=== PATIENT | female | born 1985 | race African-American/Black ===

== ENCOUNTER 2017-12-23 18:22 | Emergency (ER) | payer SELFPAY ==
[~2017-12-23] VITALS: Ht 149.9 cm; Wt 80.0 kg
[~2017-12-23 18:22] MED LIST: CEPHALEXIN500 MG PO; MOTRIN200 MG PO; NO HOME MEDS; PNV PRENATAL PL1 TAB PO; PRENATAL1 TAB OR; TYLENOL325 MG PO; ZOFRAN ODT4 MG OR
[2017-12-23 20:32] LABS: URINE BILIRUBIN - DIPSTICK NEGATIVE (NEGATIVE); URINE BLOOD DIPSTICK SMALL (NEGATIVE); URINE COLOR YELLOW; URINE GLUCOSE - DIPSTICK NEGATIVE (NEGATIVE); URINE KETONE NEGATIVE (NEGATIVE); URINE NITRITE - DIPSTICK NEGATIVE (Negative); URINE PROTEIN - DIPSTICK NEGATIVE (NEG-TRACE); URINE UROBILINOGEN - DIPSTICK 0.2 E.U./dL (0.2)
[2017-12-23 20:33] LABS: URINE LEUK ESTERASE SMALL (NEGATIVE)
[2017-12-23 20:34] LABS: URINE CLARITY HAZY
[2017-12-23 20:41] LABS: URINE SQUAMOUS EPITHELIAL CELL MANY EPI/hpf (0-FEW)
[2017-12-23] MEDS ORDERED: PEPCID20 MG PO (20:58)
[2017-12-23] MEDS ORDERED: BENADRYL 50MG C50 MG PO (20:58)
[2017-12-23] MEDS ORDERED: MEDDOSEPAK PO (20:58)
[2017-12-23 21:12] VITALS: BP 114/56
[2017-12-24] MEDS ORDERED: CIPROFLOXACN500 MG PO (01:32)
== END 2017-12-23 21:00 | disposition home or self-care (01) | DRG 916 ==
LOC: ED 18:22
PROVIDERS: Emergency Medicine
DX: T78.3XXA Angioneurotic edema, initial encounter (principal); N39.0 Urinary tract infection, site not specified; F17.210 Nicotine dependence, cigarettes, uncomplicated

== ENCOUNTER 2018-10-10 20:37 | Emergency (ER) | payer OTHER ==
[~2018-10-10] VITALS: Ht 149.9 cm; Wt 91.6 kg
[~2018-10-10 20:37] MED LIST changes: +BENADRYL 50MG C50 MG PO; +CIPROFLOXACN500 MG PO; +MEDDOSEPAK PO; +PEPCID20 MG PO
[2018-10-10 22:10] VITALS: BP 128/89
== END 2018-10-10 22:12 | disposition home or self-care (01) ==
LOC: ED 20:37
DX: S93.402A Sprain of unspecified ligament of left ankle, initial encounter (principal); F17.200 Nicotine dependence, unspecified, uncomplicated; W01.0XXA Fall on same level from slipping, tripping and stumbling without subsequent striking against object, initial encounter; Y92.009 Unspecified place in unspecified non-institutional (private) residence as the place of occurrence of the external cause

== ENCOUNTER 2020-05-08 04:16 | Emergency (ER) | payer OTHER ==
[~2020-05-08] VITALS: Ht 152.4 cm; Wt 72.0 kg
[2020-05-08] MEDS ORDERED: AMOXICILLIN500 MG PO (05:11)
[2020-05-08 05:20] VITALS: BP 134/75
== END 2020-05-08 05:20 | disposition home or self-care (01) ==
LOC: ED 04:16
DX: S91.342A Puncture wound with foreign body, left foot, initial encounter (principal); W22.8XXA Striking against or struck by other objects, initial encounter; F17.210 Nicotine dependence, cigarettes, uncomplicated; Y92.009 Unspecified place in unspecified non-institutional (private) residence as the place of occurrence of the external cause

== ENCOUNTER 2020-10-05 10:44 | Emergency (ER) | payer OTHER ==
[~2020-10-05] VITALS: Ht 152.4 cm; Wt 75.0 kg
[~2020-10-05 10:44] MED LIST changes: +AMOXICILLIN500 MG PO
[2020-10-05 12:56] VITALS: BP 122/77
== END 2020-10-05 12:56 | disposition home or self-care (01) ==
LOC: ED 10:44
DX: S01.81XA Laceration without foreign body of other part of head, initial encounter (principal); F17.200 Nicotine dependence, unspecified, uncomplicated; Y00.XXXA Assault by blunt object, initial encounter; Y92.009 Unspecified place in unspecified non-institutional (private) residence as the place of occurrence of the external cause